=== PATIENT | female | born 1975 | race Caucasian/White ===

== ENCOUNTER 2024-08-01 10:46 | Emergency (ER) | payer BC, SELFPAY ==
[2024-08-01 10:53] VITALS: BP 151/90
--- NOTE | 2024-08-01 11:24 | ED.GENMED ---
History of Present Illness
<Elvi Ayala PA-C - Last Filed: 08/01/24 17:37>
General
Chief Complaint: Throat Problem
Source: patient
Exam Limitations: none
Time Seen by Provider: 08/01/24 11:15
Nursing documentation reviewed up to this point in time: agreed with
History of Present Illness
History of Present Illness:
48-year-old female with past medical history of hypothyroidism, history of tonsillectomy/adenectomy presents emergency department today with multiple weeks of sore throat. Patient states that this all started 2 weeks ago. This is associated with
fevers as well as nausea and vomiting. Her symptoms were attributed to post-COVID syndrome, and she was also diagnosed with uvulitis at this time and started on steroids. Patient states that she initially got better with the steroids, however
after her last dose of the steroids 4 days ago, she felt as though her sore throat got worse. Patient states that she now feels as though it is hard to swallow and she has swelling in the front of her neck and feels as though her whole throat is
swelling up. Patient states that she is up-to-date on her vaccinations. Patient no longer has nausea or vomiting but does have on and off chills. Patient has no pain with flexion or extension. She has no trismus, no hot potato voice.
Past History
<ANAM Caraballo Last Filed: 08/01/24 17:37>
Past History
ED Past Medical History: Other (Migraines)
ED Past Surgical History: None
Social History
Tobacco: Non-smoker
Review of Systems
<Elvi Ayala PA-C - Last Filed: 08/01/24 17:37>
Review of Systems
All Other Systems: ROS reviewed and negative except as documented in HPI and ROS
Phy Exam
<Elvi Ayala PA-C - Last Filed: 08/01/24 17:37>
Physical Exam
Physical Exam:
General: Patient is well appearing and in no acute distress; non-toxic
Skin: Warm and dry, no rashes or lesions
Head: Normocephalic, atraumatic
Eyes: Sclera non-icteric. EOMs intact.
Neck: No cervical lymphadenopathy. No pain with neck flexion or extension. Mild submandibular swelling noted bilaterally.
Mouth: Uvula is edematous and erythematous, midline. Hx of tonsillectomy. No intraoral lesions.
Cardiac: Regular rate an rhythm, no murmurs
Pulm: Normal respiratory effort, no wheezes, rales, or rhonchi bilaterally
Abdomen: No abdominal tenderness to palpation
Neuro: CN II-XII intact, no focal neurologic deficits.
Psychiatric: Appropriate mood and affect.
Course
Januarylt;Elvi Ayala PA-C - Last Filed: 08/01/24 17:37>
Orders/Labs/Results
Orders:
Orders
08/01/24 11:53
CT Neck With Iv Contrast Urgent
Comment:
Reason For Exam: neck swelling and pain
0.9% Sodium Chloride 500 ml [Nss] 500 ml IV BOLUS
Ketorolac [Toradol] 15 mg IV NOW STA
08/01/24 12:08
Complete Blood Count/With Diff Urgent
Comprehensive Metabolic Panel Urgent
Monotest Urgent
Comment: MONO ADDED ON BY FLOOR 1PM 08-01-24
Rapid Strep Group A Urgent
KAREN Source: Throat/Pharynx
Specimen Description:
Date Specimen was Collected: 08/01/24
Time Specimen was Collected: 11:58
08/01/24 13:07
Add On- LAB Urgent
Tests Added?: monotest
08/01/24 14:26
Dexamethasone Sod Phosphate [Decadron] 10 mg IV NOW STA
08/01/24 14:43
Clindamycin HCl [Cleocin] 450 mg PO NOW STA
Abnormal Lab Results
08/01/24
12:08
WBC 14.7 H 10^3/uL
(4.8-10.8)
Abs Immat Gran (auto) 0.1 H 10^3/uL
(0-0.05)
Absolute Neuts (auto) 9.4 H 10^3/uL
(1.4-6.5)
Absolute Lymphs (auto) 4.2 H 10^3/uL
(1.2-3.4)
Absolute Monos (auto) 0.7 H 10^3/uL
(0.1-0.6)
Immature Gran % 1.0 H %
(0-0.5)
Creatinine 0.5 L mg/dL
(0.6-1.0)
ALT 48 H U/L
(0-35)
Alkaline Phosphatase 132 H U/L
(38-126)
08/01/24 12:08
08/01/24 12:08
Vital Signs
Initial and Last Documented VS:
Initial Vital Signs
Temp Pulse Resp BP Pulse Ox
98.1 F 100 16 151/90 98
08/01/24 10:53 08/01/24 10:53 08/01/24 10:53 08/01/24 10:53 08/01/24 10:53
Last Documented Vital Signs
Temp Pulse Resp BP Pulse Ox
98 F 98 18 134/68 99
08/01/24 14:55 08/01/24 14:55 08/01/24 14:55 08/01/24 14:55 08/01/24 14:55
<Jesse Samson MD - Last Filed: 08/01/24 14:44>
Orders/Labs/Results
Orders:
Orders
08/01/24 11:53
CT Neck With Iv Contrast Urgent
Comment:
Reason For Exam: neck swelling and pain
0.9% Sodium Chloride 500 ml [Nss] 500 ml IV BOLUS
Ketorolac [Toradol] 15 mg IV NOW STA
08/01/24 12:08
Complete Blood Count/With Diff Urgent
Comprehensive Metabolic Panel Urgent
Monotest Urgent
Comment: MONO ADDED ON BY FLOOR 1PM 08-01-24
Rapid Strep Group A Urgent
KAREN Source: Throat/Pharynx
Specimen Description:
Date Specimen was Collected: 08/01/24
Time Specimen was Collected: 11:58
08/01/24 13:07
Add On- LAB Urgent
Tests Added?: monotest
08/01/24 14:26
Dexamethasone Sod Phosphate [Decadron] 10 mg IV NOW STA
08/01/24 14:43
Clindamycin HCl [Cleocin] 450 mg PO NOW STA
Abnormal Lab Results
08/01/24
12:08
WBC 14.7 H 10^3/uL
(4.8-10.8)
Abs Immat Gran (auto) 0.1 H 10^3/uL
(0-0.05)
Absolute Neuts (auto) 9.4 H 10^3/uL
(1.4-6.5)
Absolute Lymphs (auto) 4.2 H 10^3/uL
(1.2-3.4)
Absolute Monos (auto) 0.7 H 10^3/uL
(0.1-0.6)
Immature Gran % 1.0 H %
(0-0.5)
Creatinine 0.5 L mg/dL
(0.6-1.0)
ALT 48 H U/L
(0-35)
Alkaline Phosphatase 132 H U/L
(38-126)
08/01/24 12:08
08/01/24 12:08
Vital Signs
Initial and Last Documented VS:
Initial Vital Signs
Temp Pulse Resp BP Pulse Ox
98.1 F 100 16 151/90 98
08/01/24 10:53 08/01/24 10:53 08/01/24 10:53 08/01/24 10:53 08/01/24 10:53
Last Documented Vital Signs
Temp Pulse Resp BP Pulse Ox
98 F 98 18 134/68 99
08/01/24 14:55 08/01/24 14:55 08/01/24 14:55 08/01/24 14:55 08/01/24 14:55
<Elvi Ayala PA-C - Last Filed: 08/01/24 17:37>
MDM/Problems Addressed
Differential Diagnosis Includes:
Differentials include uvulitis, retropharyngeal abscess, viral pharyngitis, epiglottitis, esophagitis, allergic reaction
MDM/Problems Addressed:
48-year-old female presents to emergency department today with persistent throat pain. On exam she has inflammation and swelling of her uvula however she also has some mild anterior neck swelling noted. Considering patient feeling out patient
therapy and the extent of her symptoms, we will obtain CAT scan of the neck to rule out deep space infection of the neck. CT performed demonstrates enlargement of the inguinal tonsils as well as peritonsillar abscess around left faucial tonsils.
Along with bilateral cervical lymphadenopathy. Will start patient on clindamycin, findings discussed with ENT, they will see patient in office tomorrow morning 8:30 AM. Patient stable for discharge.
Chronic conditions affecting care:
hyperthyroidism
<Elvi Ayala PA-C - Last Filed: 08/01/24 17:37>
*Critical Care Note
Total Time (30-74mins, 75-104mins- exclusive of procedures): Not Applicable
ED Attending Note
<Elvi Ayala PA-C - Last Filed: 08/01/24 17:37>
-
Portions of this chart may have been created with voice recognition software.� Occasional wrong word or��sound alike� substitutions may have occurred due to the inherent limitations of voice recognition software.
<Jesse Samson MD - Last Filed: 08/01/24 14:44>
ED Attending Note
Patient seen and examined by attending physician: Yes
ED Attending Note:
I have seen and evaluated the patient with a [id number] encounter. I have spoken to the advance practicer provider and involved in the medical history, the physical exam, medical decision making.
Evaluation and management service: agree unless noted differently below.
Results interpretation: agree unless noted differently below.
Focused HPI: 48-year-old female with history as documented presents for evaluation of sore throat. Patient reports this has been ongoing for 8 days. She says she was initially seen last week and had negative strep swab, was started on a Z-Parveen and
a short burst of steroids�she says symptoms improved transiently but then once again worsened and over the past few days has had progressive throat pain. Worse when she swallows. She denies any trismus or pain with movement of the neck. She did
have a fever last week to 103 �F but no fever since. She has had mild cough. Denies rhinorrhea or postnasal drip. She denies any change in voice. She denies any drooling. She denies any shortness of breath. No other complaints. She is status
post T&A when she was 16.
Physical exam: Awake alert not in distress. Airway intact, handling secretions. Hypertensive and mildly tachycardic but no fever. She has no tongue elevation, patent oropharynx, slight erythema of the uvula and pharynx but no vesicles or
petechiae, tonsils absent. No trismus. Full range of motion of the neck without pain. No palpable adenopathy. No submental swelling.
Medical Decision Makin-year-old female presents with persistent sore throat for over a week now. Treated with steroids and a Z-Parveen with transient improvement but symptoms once again worsening. She had labs including CBC which showed
leukocytosis, CMP no clinically significant abnormalities. Monospot was negative. Strep swab negative. Pending CT neck to rule out abscess. Likely escalate antibiotics and restart steroids.
CT neck shows a tiny left peritonsillar abscess approximately 6 mm�on review of CT likely not amenable to drainage based on the size and location. Discussed with ENT will start on clindamycin 450 mg 3 times daily, treat with dexamethasone and have
patient follow-up in the office tomorrow at 8:30 AM. Discussed with patient she is agreeable.
Discharge Plan
Departure
Patient Disposition: Home (Routine Discharge)
Date of Disposition: 08/01/24
Time of Disposition: 14:43
Patient with high blood pressure during this ER visit?: Yes
Discharge Problem:
Acute tonsillitis, Abscess, peritonsillar
Instructions: Peritonsillar Abscess, Adult (DC)
Prescriptions:
New
clindamycin HCl 150 mg capsule
450 mg PO TID 10 Days Qty: 90 0RF
No Action
gabapentin 300 mg capsule
300 mg PO DAILY Qty: 30 0RF
hydrocodone-acetaminophen 5-325 mg tablet
1 tab PO Q8H PRN (Reason: pain) Qty: 8 0RF
Referrals:
Humble Mccarthy MD [Family Provider] -
Leonardo Hammond MD [Active] - 08/02/24 8:30 am
Activity Restrictions/Additional Instructions:
Thank you for visiting the Emergency Department at [facility].
1. Please schedule a follow up appointment as directed. Call first thing tomorrow morning to make an appointment.
2. If indicated, please take your medications as instructed and indicated on discharge paperwork.
3. If any of your symptoms do not improve, or persist, or become more severe within 6-12 hours, please return to the emergency department for further care.
4. Please return to the emergency department if you develop a headache, neck pain/stiffness, fever greater than 100.4F, chest pain, shortness of breath, persistent nausea, vomiting, slurred speech, difficulty walking, numbness/tingling, weakness,
signs of infection or any other symptoms that are worrisome to you.
Please call [phone] if you have any questions.
Interventions
Interventions:
*Risk Screen - Suicide Last Done: 08/01/24 10:53
*General Assessment Last Done: 08/01/24 10:53
*Neglect/Abuse Screening Last Done: 08/01/24 10:53
*ED COVID-19 Vaccine History Last Done: 08/01/24 10:53
*Nursing Disposition Last Done: 08/01/24 15:03
ED-EENT Assessment Last Done: 08/01/24 12:17
ED- Pulmonary Assessment Last Done: 08/01/24 12:17
Discharge Date and Time
Discharge Date/Time: 08/01/24 15:04
Print Language: TURKISH
[2024-08-01] MEDS: TORADOL 15 MG IV (12:11)
[2024-08-01] MEDS: NSS 500 IV (12:11)
[2024-08-01 12:16] VITALS: BMI 32.1
[2024-08-01 12:41] LABS: Hematocrit 38.2 % (37.0-47.0); Hemoglobin 12.6 g/dL (12.0-16.0); Mean Corpuscular Volume 84.9 fL (81.0-99.0); Mean Platelet Volume 9.5 fL (7.4-10.4); Platelet Count 381 10^3/uL (130-400); Red Cell Dist. Width 13.8 % (11.5-14.5); White Blood Cell Count 14.7 10^3/uL (4.8-10.8)
[2024-08-01 12:43] LABS: ALT (SGPT) 48 U/L (0-35); AST (SGOT) 20 U/L (14-36); Albumin 4.3 g/dl (3.5-5.0); Alkaline Phosphatase 132 U/L (38-126); Blood Urea Nitrogen 10 mg/dl (7-17); Calcium 9.9 mg/dl (8.4-10.2); Carbon Dioxide 29 mmol/L (22-30); Chloride 101 mmol/L (98-107); Estimated Creatinine Clearance 110 ml/min; Glucose 90 mg/dl (70-99); Potassium 4.2 mmol/L (3.5-5.1); Sodium 141 mmol/L (135-145); Total Bilirubin 0.6 mg/dl (0.2-1.3); Total Protein 7.3 g/dl (6.3-8.2); eGFR > 60.00
[2024-08-01 13:44] LABS: Monotest Negative (Negative)
[2024-08-01 14:32] LABS: % Basophils 0.3 % (0-2); % Eosinophils 1.3 % (0-6); % Lymphocytes 28.5 % (20.5-51.1); % Neutrophils 63.9 % (42.2-75.2); Absolute Eosinophils 0.2 10^3/uL (0-0.7); Absolute Immature Granulocytes 0.1 10^3/uL (0-0.05); Absolute Lymphocytes 4.2 10^3/uL (1.2-3.4); Absolute Monocytes 0.7 10^3/uL (0.1-0.6); Absolute Neutrophils 9.4 10^3/uL (1.4-6.5); Nucleated Red Blood Cells % 0 %
[2024-08-01] MEDS: DECADRON 10 MG IV (14:47)
[2024-08-01] MEDS: CLEOCIN 450 MG PO (14:53)
[2024-08-01 14:55] VITALS: BP 134/68
== END 2024-08-01 15:04 | disposition home or self-care (01) ==
LOC: EMR 10:46
PROVIDERS: Physician Assistant; EMERGENCY PHYSICIAN Emergency Medicine; FAMILY PHYSICIAN Family Medicine
DX: J36 Peritonsillar abscess (principal); R03.0 Elevated blood-pressure reading, without diagnosis of hypertension
CPT/HCPCS: 99284; 96374; 96375; 96361; 70491; 80053; 85025; 86308; 87070; 87880; Q9967

== ENCOUNTER 2025-02-11 18:05 | Inpatient (IN) | payer BC, SELFPAY ==
[2025-02-11] VITALS (20 sets, daily range): BP systolic 80–148; BP diastolic 60–101
[2025-02-11 14:01] LABS: Hematocrit 40.5 % (37.0-47.0); Hemoglobin 13.5 g/dL (12.0-16.0); Mean Corp Hgb Conc. 33.3 g/dL (33.0-37.0); Mean Corpuscular Hgb 29.5 pg (27.0-31.0); Mean Corpuscular Volume 88.6 fL (81.0-99.0); Mean Platelet Volume 9.7 fL (7.4-10.4); Platelet Count 403 10^3/uL (130-400); Red Blood Cell Count 4.57 10^6/uL (4.20-5.40); Red Cell Dist. Width 13.8 % (11.5-14.5); White Blood Cell Count 25.9 10^3/uL (4.8-10.8)
[2025-02-11 14:11] LABS: ALT (SGPT) 20 U/L (0-35); AST (SGOT) 17 U/L (14-36); Albumin 4.6 g/dl (3.5-5.0); Alkaline Phosphatase 102 U/L (38-126); Blood Urea Nitrogen 21 mg/dl (7-17); Calcium 9.2 mg/dl (8.4-10.2); Carbon Dioxide 24 mmol/L (22-30); Chloride 104 mmol/L (98-107); Glucose 198 mg/dl (70-99); Potassium 4.2 mmol/L (3.5-5.1); Sodium 139 mmol/L (135-145); Total Bilirubin 0.4 mg/dl (0.2-1.3); Total Protein 7.1 g/dl (6.3-8.2); eGFR > 60.00
[2025-02-11 14:31] LABS: Troponin I 0.109 ng/ml
[2025-02-11 15:28] LABS: % Basophils 0.2 % (0-2); % Immature Granulocytes 0.8 % (0-0.5); % Lymphocytes 13.9 % (20.5-51.1); % Neutrophils 81.1 % (42.2-75.2); Absolute Basophils 0.1 10^3/uL (0-0.2); Absolute Immature Granulocytes 0.2 10^3/uL (0-0.05); Absolute Lymphocytes 3.6 10^3/uL (1.2-3.4); Nucleated Red Blood Cells % 0 %
--- NOTE | 2025-02-11 16:06 | ED.GENMED ---
History of Present Illness
General
Chief Complaint: Chest Pain
Source: patient
Exam Limitations: none
Time Seen by Provider: 02/11/25 15:35
History of Present Illness
History of Present Illness:
49yoF with a history of Grave's disease s/p thyroidectomy now on levothyroxine and thyroid eye disease presenting for evaluation of jaw pain. Patient was at a restaurant this afternoon around 11 AM. She had the sudden urge to go to the bathroom
and had an episode of diarrhea. This was followed by a throbbing headache. Pain started to radiate into her jaw followed by a burning pain in her chest. This was associated with nausea and hot and cold flashes. She continues to have
intermittent discomfort in her chest. She denies any shortness of breath, pleuritic pain, syncope, paresthesias, vomiting. Of note, patient is currently on a prednisone taper for her thyroid eye disease and is currently taking 40 mg daily.
Past History
Past History
ED Past Medical History: Other (Migraines)
ED Past Surgical History: None
Social History
Tobacco: Non-smoker
Phy Exam
Physical Exam
Physical Exam:
Patient appears uncomfortable, anxious
General Physical Exam
General Presentation: well appearing and mild distress
General age: appears stated age
General Skin: warm and dry
General Mental: alert
ENT Exam
ENT Exam: normocephalic
Cardiovascular Exam
Cardiovascular Exam: regular rate/rhythm, no edema, no murmur and normal peripheral pulses (2+ radial and DP pulses bilaterally)
Pulmonary Exam
Pulmonary Exam: lungs clear, no respiratory distress, no rales, no crackles and no rhonchi
Neurological Exam
Neurological Exam: alert
[place] Coma Scale
Eye Opening: Spontaneous
Verbal Response: Oriented
Motor Response: Obeys Commands
GCS Total Score: 15
Skin Exam
Skin Exam: normal color and warm/dry
Psychiatric Exam
Psychiatric Exam: anxious
Scores
Heart Score for Chest Pain Patients
STEMI patient?: No
History: Highly Suspicious
ECG: Significant ST-Depression
Age: >45 - <65 years
Risk Factors: 1 or 2 Risk Factors
Troponin: >/= 3 x Normal Limit
Heart Score for Chest Pain Patients: 8
Heart Score Risk: 72.7 % MACE over next 6 weeks
Course
Orders/Labs/Results
Orders:
Orders
02/11/25 12:58
ECG [Electrocardiogram (*1)] Urgent
Reason for Study: Chest Pain
EKG- Treatment ONCE
02/11/25 13:15
CT Head W/o Iv Contrast Urgent
Comment:
Reason For Exam: headache, double vision
02/11/25 13:41
Complete Blood Count/With Diff Urgent
Comprehensive Metabolic Panel Urgent
Troponin I Urgent
02/11/25 15:37
ECG [Electrocardiogram (*1)] Urgent
Reason for Study: Chest Pain
EKG- Treatment ONCE
02/11/25 15:47
CT Chest/abd/pelvis Angio W/wo Urgent
Comment:
Reason For Exam: Chest pain, r/o dissection
Cardiac Monitoring- Treatment ONCE
02/11/25 15:54
Troponin I Urgent
02/11/25 16:17
Morphine Sulfate 4 mg IV NOW STA
Ondansetron Injectable [Zofran] 4 mg IV NOW STA
02/11/25 16:32
Aspirin Chewable [Low Strength Aspirin] 324 mg PO NOW STA
02/11/25 16:45
Heparin 4,000 units IV NOW STA
Heparin 83966 Units/250 ml 25,000 units in 250 ml IV PER PROTOCOL
Weight to be used for heparin protocol in kilograms (kg):: 88
Protocol:: Cardiac Tx/Acute Coronary
PTT Goal Range to be used:: PTT 73 to 111 seconds
Order type:: Initial
INITIAL Infusion Dose (UNITS/KG/hr) & then follow protocol:: 12 units/kg/hr
Infusion Dose in UNITS/hr & then follow protocol (UNITS/hr):: 1,000
INFUSION RATE in mL/hr & then follow protocol (mL/hr):: 10
PTT less than or equal to 64 seconds:: Increase rate by 200 units/hr (+ 2 mL/hr)
PTT 64.1 to 72.9 seconds:: Increase rate by 100 units/hr (+ 1 mL/hr)
PTT 73 to 111 seconds:: Target Range. No change in rate.
PTT 111.1 to 130.9 seconds:: Decrease rate by 100 units/hr (- 1 mL/hr)
PTT 131 to 199.9 seconds:: HOLD for 1 hr. Then decrease rate by 200 units/hr (- 2 mL/hr)
PTT greater than or equal to 200 seconds:: HOLD for 2 hrs & Notify Provider. Then decrease by 200 units/hr (-
2 mL/hr)
Lab follow-up:: Each change, PTT q6h until 2 consecutive are therapeutic. Then PTT
daily.
Nursing to Place Non Medication Order As Directed
Physician Order: PTT 6 hours after initial start of Heparin infusion
Above order entered?: Yes
02/11/25 16:46
Nitroglycerin Sublingual [Nitrostat (Sublingual)] 0.4 mg SL NOW STA
02/11/25 17:06
PTT Urgent
Comment: Obtain baseline before beginning heparin infusion if not already collected
Abnormal Lab Results
02/11/25 02/11/25
13:41 15:54
WBC 25.9 H 10^3/uL
(4.8-10.8)
Plt Count 403 H 10^3/uL
(130-400)
Abs Immat Gran (auto) 0.2 H 10^3/uL
(0-0.05)
Absolute Neuts (auto) 21.0 H 10^3/uL
(1.4-6.5)
Absolute Lymphs (auto) 3.6 H 10^3/uL
(1.2-3.4)
Absolute Monos (auto) 1.0 H 10^3/uL
(0.1-0.6)
Immature Gran % 0.8 H %
(0-0.5)
Neutrophils % 81.1 H %
(42.2-75.2)
Lymphocytes % 13.9 L %
(20.5-51.1)
BUN 21 H mg/dl
(7-17)
Glucose 198 H mg/dl
(70-99)
Troponin I 0.109 H* ng/ml 1.230 H* D ng/ml
02/11/25 13:41
02/11/25 13:41
Vital Signs
Initial and Last Documented VS:
Initial Vital Signs
Temp Pulse Resp BP Pulse Ox
97.7 F 98 18 148/100 96
02/11/25 13:03 02/11/25 13:03 02/11/25 13:03 02/11/25 13:03 02/11/25 13:03
Last Documented Vital Signs
Temp Pulse Resp BP Pulse Ox
97.7 F 102 26 137/101 94
02/11/25 13:03 02/11/25 16:00 02/11/25 16:00 02/11/25 17:01 02/11/25 15:45
MDM/Problems Addressed
Differential Diagnosis Includes:
49yoF here with jaw pain/chest burning that started after a headache this afternoon. Associated with nausea and diaphoresis. She is mildly elevated in triage with otherwise normal vital signs. She appears uncomfortable and is anxious. Exam
otherwise reassuring with equal pulses in all extremities. Differential diagnosis includes but is not limited to: ACS, PE, aortic dissection
Initial ED plan: Labs and EKG obtained in triage. Troponin 0.109 and EKG shows nonspecific ST changes. Leukocytosis noted with a WBC of 25 which may be related to the prednisone taper that she is on. CT head negative for acute findings. Repeat
EKG obtained during initial assessment appears improved. Will check repeat troponin and dissection study. IV morphine and Zofran for symptoms.
*EKG
Interpreted by ED Provider?: Yes
EKG Intrepretation Date: 02/11/25
Heart Rate: 95
Rate: normal
Rhythm: sinus
[place]: normal axis
Interval: normal interval
QRS Pattern: normal QRS
Ischemia: non-specific ST changes
*Critical Care Note
Total Time (30-74mins, 75-104mins- exclusive of procedures): 35
Update Note
Update Note:
Repeat troponin increasing to 1.23. CTA is negative for aortic dissection and other acute findings. On reassessment, her headache and chest burning have resolved but she now is complaining of chest tightness. Dr. Ontiveros notified of patient and
cardiology is recommending admission to the hospitalist service. Aspirin load and heparin infusion ordered. She was admitted for further management.
ED Attending Note
-
Portions of this chart may have been created with voice recognition software.� Occasional wrong word or��sound alike� substitutions may have occurred due to the inherent limitations of voice recognition software.
Discharge Plan
Departure
Patient Disposition: Admit
Date of Disposition: 02/11/25
Time of Disposition: 16:48
Presentation/result/management discussed w/ accepting MD/DO: Hospitalist
Discharge Problem:
Non-ST elevation [place] (NSTEMI)
Prescriptions:
No Action
gabapentin 300 mg capsule
300 mg PO DAILY Qty: 30 0RF
hydrocodone-acetaminophen 5-325 mg tablet
1 tab PO Q8H PRN (Reason: pain) Qty: 8 0RF
clindamycin HCl 150 mg capsule
450 mg PO TID 10 Days Qty: 90 0RF
Referrals:
UNKNOWN - PT DOES,NOT KNOW [Family Provider] -
Interventions
Interventions:
*Risk Screen - Suicide Last Done: 02/11/25 13:03
*General Assessment Last Done: 02/11/25 13:03
*Neglect/Abuse Screening Last Done: 02/11/25 13:03
ED- Cardiac Assessment Last Done: 02/11/25 15:32
Discharge Date and Time
Print Language: HAITIAN
[2025-02-11] MEDS: ZOFRAN 4 MG IV ×2 (16:21→20:29)
[2025-02-11] MEDS: MORPHINE SULFATE 4 MG IV (16:21)
[2025-02-11] MEDS: LOW STRENGTH ASPIRIN 324 MG PO (16:51)
[2025-02-11] MEDS: NITROSTAT (SUBLINGUAL) 0.4 MG SL (17:01)
[2025-02-11] MEDS: HEPARIN 25000 UNITS/250 ML IV (17:18)
[2025-02-11] MEDS: HEPARIN 4000 UNITS IV (17:18)
[2025-02-11 17:23] LABS: APTT 24.4 Sec (23.4-35.0)
--- NOTE | 2025-02-11 17:30 | HPS.HSE ---
Family Physician
-
Family Physician: NOT KNOW UNKNOWN - PT DOES
Chief Complaint
-
Headache and chest pressure
History of Present Illness
Patient with a history of Graves' disease 2 years ago and had a thyroidectomy. During that time she was also diagnosed with thyroid eye disease. She had a pressure in her eyes and bulging of her eyes. After thyroidectomy the bulging of the eyes
remained with a pressure event. Ever since then she had intermittent double vision.
Shows trouble with the eyes again started to have more frequent double vision and after follow-up with the claim agent and ophthalmology she was put on steroids. She started taking steroid 02/01/2025 starting at 50 mg and tapered down by 10 mg
every 4 days.
Today she was out for breakfast after she ate she had nausea and she vomited small amount of emesis. She had diarrhea twice.
Immediately after that her headache started which became really severe. She could not stand the pain. She felt she was having a brain aneurysm and she came to the hospital.
After the onset of headache she had burning sensation in the eyes, ears, jaw and it started to go down to the chest ,now settled down in the chest. She has a pressure-like feeling in the chest which was fluctuating. With the morphine she got
better. Headache is better now.
She has a history of migraine headache she gets intermittently 3-4 times a month. It is usually unilateral and is associated with visual rainbow affect but that she does not feel this headache was like her migraine.
No prior history of heart disease. She had issues with palpitations when she was young and took 3 years of medication.
Medical History
Past Medical History
Past Medical History: Reports Other (Graves dz)
Additional Past Medical History:
Graves' disease, migraine headaches
Past Surgical History: Reports Appendectomy, Tonsilectomy and Other (Tubal ligation)
Social History
Tobacco: Non-smoker
Alcohol: None
Drug: None
Living: With Family
Family History
Family History: Other (Sister had brain aneurysm)
Allergies / Home Medications
Allergies reflects when Allergies were last updated in [employer].
Home Medications with original date entered in [employer]
Allergy/Medication List:
Allergies
Allergy/AdvReac Type Severity Reaction Status Date / Time
diphenhydramine Allergy Unknown Verified 02/11/25 13:03
[From Benadryl]
nirmatrelvir [From Paxlovid] Allergy Swelling Verified 02/11/25 13:03
nitrofurantoin Allergy Unknown Verified 02/11/25 13:03
[From Macrobid]
ritonavir [From Paxlovid] Allergy Swelling Verified 02/11/25 13:03
Home Medications
gabapentin 300 mg capsule 300 mg PO DAILY #30 caps 05/09/22
hydrocodone 5 mg-acetaminophen 325 mg tablet 1 tab PO Q8H PRN pain #8 tabs 05/09/22
clindamycin HCl 150 mg capsule 450 mg (3 x 150 mg) PO TID 10 days #90 caps 08/01/24
Review of Systems
-
A 12 point ROS was completed and negative except as noted: Yes
Physical Exam
Vital Signs
Vital Signs
Temp Pulse Resp BP Pulse Ox
97.7 F 102 26 136/87 94
02/11/25 13:03 02/11/25 16:00 02/11/25 16:00 02/11/25 17:06 02/11/25 15:45
Physical Exam
General: Comfortable
HEENT: Moist mucous membranes
Respiratory: Clear and Non Labored Respirations; No Wheezes, Crackles or Accessory Resp Muscle Use
Cardiac: S1/S2, Regular Rhythm and Tachycardia
GI: Soft, Non Tender, Non Distended and Normal Bowel Sounds
Musculoskeletal: No Edema
Neuro: AO x 3 and No Motor Deficits; No Slurred Speech or Facial Droop
Psych: Calm and Intact Judgment/Insight; No Confused
Laboratory Results
-
02/11/25 13:41
02/11/25 13:41
Laboratory Results
APTT 24.4 Sec (23.4-35.0) 02/11/25 17:06
Total Bilirubin 0.4 mg/dl (0.2-1.3) 02/11/25 13:41
AST 17 U/L (14-36) 02/11/25 13:41
ALT 20 U/L (0-35) 02/11/25 13:41
Alkaline Phosphatase 102 U/L (38-126) 02/11/25 13:41
Troponin I 1.230 ng/ml H* D 02/11/25 15:54
Data Reviewed
-
CT Scan: Report Reviewed by me (CT angiogram of chest and abdomen pelvis, head CT)
Lab Data: Labs Reviewed by me
Impression/Plan
-
Acute chest pressure with associated headache, nausea vomiting and diarrhea-patient without history of CAD. EKG showed sinus rhythm with nonspecific ST-T changes. Troponin went up from 0.1-1.2 within 2 hours of admission. Rule out acute coronary
syndrome. Admit to IVU. Continue with IV heparin initiated in the ER. Continue with aspirin initiated in the ER. Continue to trend troponins. Use as needed sublingual nitro and if continues recurrence of chest pressure start on IV nitro.
Cardiology consulted and aware about admission. Check lipid panel.
Graves' disease status post thyroidectomy on Synthroid
Thyroid eye disease-currently active-initiated on steroids at 51-week ago. Continue with prednisone and taper as planned. Add p.o. eval and aspirin and steroids. Check a TSH.
Leukocytosis-suspect secondary to steroids. Afebrile. Patient without any upper respiratory symptoms. He had a prodrome of upper respiratory infection symptoms 2 weeks ago. Follow closely for any fevers or any other focal symptoms.
Full code
[2025-02-11] MEDS: DELTASONE 30 MG PO (18:53)
[2025-02-11] MEDS: PROTONIX 40 MG PO (18:53)
--- NOTE | 2025-02-11 19:36 | PTCARENOTE ---
Pt admitted from ED on heparin infusion. Pt denied any discomfort on arrival to IVU then reported 3/10 chest tightness. BP 106/76, 100% on room air. Troponins trending up, notified and came in to see pt, stat ECG was done. Telemetry shows
sinus rhythm. Will monitor pt closely.
--- NOTE | 2025-02-11 19:51 | CON.CAR ---
Consultation
Consultation Request
Date/Time Consultation Requested: 02/11/2025 16: 00
Date/Time Consultation Performed: 02/11/2025 19: 00
Requesting Provider: Rosales
Performing Provider: Rama
Reason for Consultation: Chest pain
Medical History
-
Chief Complaint: Chest pain
History of Present Illness:
Alma has a history of Graves' disease status post thyroidectomy in October 2024 with resultant hypothyroidism, mild hypercholesterolemia. 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
She was at breakfast at 11 AM this morning developed severe diarrhea after eating. This was followed by throbbing in the back of her eyes with burning in her eyes, ears which went down to her jaw and chest. This lasted for several minutes and she
came to the ER. Of note the chest burning came and went lasted 10 minutes at the time throughout the day. Symptoms were associated with nausea and diaphoresis. She was given nitro without relief. She was given morphine. Her pain had resolved.
She subsequently came to the IVU and developed recurrent chest discomfort. Feels like a tightness. Has not changed with breathing. Although troponin went from 0.1 to 1 0. to 1.7. ECG is normal
Past Medical History
Past Medical History: Other (See HPI, also migraine headaches history)
Past Surgical History: Other (Appendectomy, tonsillectomy, tubal ligation)
Social History
Tobacco: Non-Smoker
Alcohol: None
Drug: None
Personal: Single
Living: With Family
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
Family History
Family History: Other (There is a family history of premature coronary artery disease)
Allergies / Home Medications
Allergy/AdvReac Type Severity Reaction Status Date / Time
diphenhydramine Allergy Unknown Verified 02/11/25 13:03
[From Benadryl]
nirmatrelvir [From Paxlovid] Allergy Swelling Verified 02/11/25 13:03
nitrofurantoin Allergy Unknown Verified 02/11/25 13:03
[From Macrobid]
ritonavir [From Paxlovid] Allergy Swelling Verified 02/11/25 13:03
�Medication �Instructions �Recorded �Confirmed �Type
levothyroxine 112 mcg tablet 112 mcg PO DAILY Thyroid 02/11/25 02/11/25 History
prednisone 10 mg tablet 10 mg PO DIRECTED 02/11/25 02/11/25 History
Anti-Inflammatory
therapeutic multivitamin 1 tab PO DAILY Supplement 02/11/25 02/11/25 History
Review of Systems
-
History Source: Patient
All other systems: Negative unless noted
Constitutional: No Symptoms
EENT: No Symptoms
Respiratory: No Symptoms
Cardiac: Chest Pain and Diaphoresis
Abdomen/GI: Nausea and Diarrhea
: No Symptoms
Musculoskeletal: No Symptoms
Skin: No Symptoms
Neurological: Headache
Endocrine: No Symptoms
Hematologic/Lymphatic: No Symptoms
Physical Exam
Vital Signs
Temp Pulse Resp BP Pulse Ox
97.5 F 93 20 106/84 100
02/11/25 18:19 02/11/25 18:45 02/11/25 18:19 02/11/25 18:19 02/11/25 19:31
General: Well developed, well nourished in NAD.
Neck: Supple, no JVD, HJR, carotids +2 B/L, no bruits bilaterally.
Heart: Non displaced PMI, RRR, no murmurs, No S3, S4, no rubs.
Lungs: Clear to auscultation bilaterally, no wheeze, rhonchi, rubs bilaterally,
normal expiratory phase.
Abdomen: Normal bowel sounds, soft, non-tender, non-distended.
Extremities: No clubbing, cyanosis or edema bilaterally.
Neuro: Grossly nonfocal, awake, alert and oriented x3.
Lab Results
02/11/25 13:41
02/11/25 13:41
Troponin I 1.750 ng/ml H* D 02/11/25 18:32
Impression / Plan
-
Impression:
Non-STEMI with troponin of 1.7
History of Graves' disease status post thyroidectomy with resultant
Thyroid eye disease
Leukocytosis
Plan:
She presents with chest burning which had resolved. Chest discomfort has recurred. Of note there was no relief with nitroglycerin and morphine may have helped. CT was negative for aortic dissection and also for pulmonary embolism. EKG has
remained normal but troponin has increased to 1.7
Will give IV Lopressor and assess response
If continued chest discomfort on IV heparin we will do cardiac catheterization
Critical care time 35 minutes
Data Reviewed
-
EKG: Tracing Personally Visualized and interpreted
Radiology: Report Reviewed by me
Medical Tests (Nuc Med, Echo etc): Report Reviewed by me
Labs: Labs Reviewed by me
Old Records: Reviewed
[2025-02-11] MEDS: LOPRESSOR 5 MG IV (19:57)
--- NOTE | 2025-02-11 20:09 | W.PN.UPDATE ---
Update Note
Progress Note Update
She continues with chest discomfort despite giving IV Lopressor 5 mg. Will do cardiac catheterization. Explained risk and benefits to patient and family at bedside and she agrees to proceed. Business Performance Manager has been notified and discussed with
interventional cardiology
--- NOTE | 2025-02-11 20:42 | ITS.CL.PN ---
Remelt Worker - Procedure Note
Procedure
Procedure Note:
CARDIAC CATHETERIZATION REPORT
Date of Procedure: 02/11/2025
Referring: Dr. Ismael Ontiveros MD
Indication: high-risk NSTEMI
PROCEDURE(S)
1. left heart catheterization
2. coronary angiography
ACCESS: 6F right radial artery (closure: radial band)
CATHETERS
1. 6F JR4
2. 6F JL3.5
MODERATE SEDATION: 30 minutes of moderate sedation was utilized. An independent medical stenographer was present to assist with and help manage the patient's level of consciousness and physiologic status.
HEMODYNAMIC DATA
LVEDP 30 mmHg
VENTRICULOGRAPHY: apical hypokinesis with preserved basal function
CORONARY ANGIOGRAPHY
Dominance: right
LM: large, normal
LAD: large vessel giving rise to a large D1 and several small diagonal branches before wrapping around the apex. There is no CAD.
LCx: moderate caliber vessel giving rise to a single OM. There is no CAD.
RCA: large vessel giving rise to a moderate caliber PRDA and large caliber RPL branch. There is no CAD.
RADIATION: dose 519.86 mGy; DAP 43.7002 Gy*cm2; fluoroscopy time 6.6 min
CONCLUSIONS
1. normal coronary arteries in a right dominant system
2. ventriculography with apical hypokinesis and preserved basal function in a pattern consistent with a stress cardiomyopathy
2. elevated LV filling pressure and no aortic stenosis
RECOMMENDATIONS
1. start beta shamir
2. diuresis
3. stop heparin
4. primary prevention of CAD
Signed: Nishant Mattson MD, PhD
--- NOTE | 2025-02-11 22:58 | PTCARENOTE ---
Addendum entered by Raisa Zimmer RN 02/11/25 23:10:
New order for Lopressor 12.5mg and Lasix. TT Dr Mattson with pt's having low BP. Dr. Mattson instructed to give those med.
Addendum entered by Raisa Zimmer RN 02/11/25 23:01:
21:45 Pt return from pharmaceutical laboratory technician, report obtained. Rt Tr band, radial with positive pulses +2, pt denies numbness, pain or tingling. BP 82/65
Original Note:
Pt is taken to pharmaceutical laboratory technician
[2025-02-11] MEDS: LOPRESSOR 12.5 MG PO (23:17)
[2025-02-11] MEDS: LASIX 20 MG IV (23:53)
[2025-02-12] VITALS (10 sets, daily range): BP systolic 81–113; BP diastolic 55–79; BMI 33.7
[2025-02-12 01:46] LABS: Blood Urea Nitrogen 20 mg/dl (7-17); Calcium 8.3 mg/dl (8.4-10.2); Carbon Dioxide 27 mmol/L (22-30); Chloride 102 mmol/L (98-107); Estimated Creatinine Clearance 114 ml/min; Glucose 146 mg/dl (70-99); HDL Cholesterol 62 mg/dl; LDL Cholesterol, Calculated 115 mg/dl; Potassium 4.2 mmol/L (3.5-5.1); Sodium 139 mmol/L (135-145); Total Cholesterol 219 mg/dl (50-199); Triglyceride 210 mg/dl (10-149); Very Low Density Lipoprotein 42 mg/dl (0-30); eGFR > 60.00
[2025-02-12 02:03] LABS: Hematocrit 37.4 % (37.0-47.0); Hemoglobin 12.5 g/dL (12.0-16.0); Mean Corp Hgb Conc. 33.4 g/dL (33.0-37.0); Mean Corpuscular Hgb 29.6 pg (27.0-31.0); Mean Corpuscular Volume 88.4 fL (81.0-99.0); Mean Platelet Volume 9.6 fL (7.4-10.4); Platelet Count 369 10^3/uL (130-400); Red Blood Cell Count 4.23 10^6/uL (4.20-5.40); Red Cell Dist. Width 14.1 % (11.5-14.5); White Blood Cell Count 23.2 10^3/uL (4.8-10.8)
[2025-02-12 02:17] LABS: TSH 0.13 uIU/ml (0.47-4.68)
[2025-02-12] MEDS: SYNTHROID 112 MCG PO (05:47)
[2025-02-12] MEDS: DELTASONE 40 MG PO (07:48)
[2025-02-12] MEDS: LOPRESSOR 12.5 MG PO ×2 (07:48→20:56)
[2025-02-12] MEDS: PROTONIX 40 MG PO (07:48)
--- NOTE | 2025-02-12 07:59 | W.PN.HOSP.TC ---
Addendum entered and electronically signed by Jerel Pedroza MD 02/12/25 20:43:
Attending Addendum-
I saw and evaluated the patient. I reviewed the resident�s note and agree with findings and plan as documented in the resident�s note. Sub: complains of burning discomfort substernally, Denies SOB CP palpitations. 'Im scared please figure this out'
Seen with daughter present Full 12 point ROS reviewed and negative except as documented Exam: Vitals reviewed in chart GEN-mild distress HEENT exophthalmos no JVD CV RRR lungs clear abd soft LE no edema b/l
Plan:
# Takotsubo CM
- cath 02/12-normal coronary arteries in a right dominant system, ventriculography with apical hypokinesis and preserved basal function in a pattern consistent with a stress cardiomyopathy
- start Lopressor
- hold lasix for now
- check echo- if decreased EF start GDMT
- likely from thyrotoxicosis/thyroid disease
# NIMI
- troponin peaked
- f/u as OP
- check echo
# Graves with eye disease
- cont steroid taper
- TSH 0.13 levothyroxine decrease 2-3 weeks ago
- cont current dose levothyroxine
- f/u endo as OP
# Leukocytosis
- likely from steroids and stress rxn
- trend
# Hyperlipidemia
- would start statin prior to DC
# Peripheral Neuropathy
- cont gabapentin
DVT-p was on hep gtt, cont SCD and early ambulation
CODE- FULL
Dispo DC in am
Time spent coordinating care, review of plan of care with resident, personally reviewed records in EMR, med rec, consults, notes, labs, radiology, d/w nursing daughter � 55 mins
Original Note:
Today's Communication/Plan
-
Pending Echo.
Assessment / Plan
Assessment / Plan
#Stress Induced Cardiomyopathy
- Heart catheterization demonstrated normal coronary arteries, APICAL HYPOKINESIS and preserved basal function in a pattern consistent with a stress cardiomyopathy, elevated filling pressure in LV
- Started on Lopressor, with plans to switch to Toprol XL pending echo
- Received one dose IV Lasix due to elevated filling pressure, no other signs of fluid overload at this time dx of CHF is questionable. Will hold off until Echo.
#Elevated Troponin, secondary to non-ischemic myocardial injury
- Peaked at 1.75, have since downtrended.
#Grave's Disease w/ Grave's Ophthalmopathy
- OP dose of Levothyroxine recently changed from 125mcg to 112mcg <4 weeks ago. TSH on admission was 0.13. Considering dose was recently adjusted, will leave at 112mcg for now. Patient will schedule f/u with music coordinator on discharge
- On steroid taper started as outpatient. Final dose of 40mg prednisone today, then 30mg q4d with continuing taper by 10mg every 4 days.
#Dyslipidemia - TGs 210, Total Cholesterol 219, LDL 115, HDL 62. ASCVD risk <5%, no statin indicated at this time. Should follow up with PCP for lifestyle and diet modifications and with Endo for continuing control of iatrogenic hypothyroidism.
#Constipation - reporting constipation since arrival. Added Colace.
DVT PPx - None, ambulatory.
Anticipated Discharge: Within 24 hours
Subjective/Interval History
-
Feeling better this morning. She is still having central chest pressure, which is improved with pain medication and not associated with any shortness of breath, dizziness, palpitations, pain. No acute overnight events.
Objective Data
-
Labs:
Laboratory Results
02/11/25 02/11/25 02/12/25
18:21 23:30 01:17
WBC 23.2 H
Hgb 12.5
Hct 37.4
Plt Count 369
APTT Cancelled Cancelled
Sodium 139
Potassium 4.2
Chloride 102
Carbon Dioxide 27
BUN 20 H
Creatinine 0.6
Glucose 146 H
Calcium 8.3 L
Vital Signs:
Vital Signs
Temp Pulse Resp BP Pulse Ox
97.6 F 81 20 91/63 96
02/12/25 07:02 02/12/25 07:30 02/12/25 07:02 02/12/25 07:01 02/12/25 07:02
I&O
02/11/25 02/12/25 02/13/25
06:59 06:59 06:59
Intake Total 500 / 500
Balance 500 / 500
Review of Systems
-
History Source: Patient
Constitutional: Reports No Symptoms
EENT: Reports Other (Exophthalmos, double vision)
Respiratory: Reports No Symptoms
Cardiac: Reports Other; Denies Diaphoresis, Palpitations or Syncope
Abdomen/GI: Reports No Symptoms
Genitourinary: Reports No Symptoms
Musculoskeletal: Reports No Symptoms
Skin: Reports No Symptoms
Neuro: Reports Headache
Physical Exam
-
General: Well Developed, Well Nourished, No Apparent Distress and Comfortable
HEENT: Normocephalic, Atraumatic, Moist Mucous Membranes, [place] Conjunctivae, No Ptosis, PERRLA and Other (BL Exophthalmos)
Respiratory: Clear to Auscultation; Negative Wheezes, Rales or Rhonchi
Cardiac: Regular Rhythm and S1/S2; Negative Murmur or Rub
Breast: Deferred by me
GI: Soft, Nontender, Nondistended and Normal Bowel Sounds
Rectal: Deferred by Provider
Genito-urinary: Deferred by me
Musculoskeletal: No Clubbing, No Cyanosis and No Edema
Skin: Warm, Dry and IV Access / Catheter Site
Neuro: Awake, Alert, Oriented and Nonfocal/Grossly Intact
Psych: Calm
--- NOTE | 2025-02-12 08:47 | PTCARENOTE ---
Rec'd pt at handoff. Tele- SR. Assessment completed as documented. R radial site is c/d/i. Pt has no complaints CP/discomfort at this time. Plan of care reviewed w/ pt and verbalizes understanding. Currently in bed; call messer is w/in reach.
--- NOTE | 2025-02-12 09:15 | W.PN.CARDCBS ---
Addendum entered and electronically signed by Ismael Ontiveros MD 02/12/25 11:00:
I saw and examined the patient.
The WARRANTY MANAGER or PA's note was reviewed and I agree with the note.
Comment: General: Well developed, well nourished in NAD.
Neck: Supple, no JVD, HJR, carotids +2 B/L, no bruits bilaterally.
Heart: Non displaced PMI, RRR, no murmurs, No S3, S4, no rubs.
Lungs: Scattered rhonchi
Extremities: No clubbing, cyanosis or edema bilaterally.
Neuro: Grossly nonfocal, awake, alert and oriented x3.
Appears to have Takotsubo's. Will check echocardiogram. She got a dose of IV Lasix for an LVEDP of 30 on 02/11 at time of catheterization. Hold off on Lasix for now as send not appear to have CHF. Change Lopressor to Toprol. Unable to give CARISSA
inhibitor with borderline blood pressure.
Original Note:
Today's Communication / Plan
-
Echo pending
Change Lopressor to ToproL XL pending echo
Impression / Plan
-
PCP: None
Card: None prior to admission
Impression:
Admitted with chest pain, SHARMA, N/V/D 02/11/25
Elevated Troponin
Takotsubo CM
No CAD by cath 02/11/25
History of Graves' disease status post thyroidectomy
Thyroid eye disease on prednisone
Leukocytosis on steroids
Echo 02/12/25: Study pending
Plan:
-Patient admitted with SHARMA, N/V/D and chest pressure. Patient with elevated Troponin and ongoing pain prompting cardiac cath that suggested Takotsubo CM.
-Troponin peaked at 1.75, will manage as a nonischemic myocardial injury Troponin elevation due to Takotsubo CM
-Tele reviewed by me 02/12/25, SR throughout, no arrhythmia
-Echo pending, but apical hypokinesis with preserved basal function on v-gram.
-Normal coronary arteries by cath 02/12/25.
-Patient thinks she was told that she had fluid around her heart, no evidence of pericardial effusion on CT. Echo as planned.
-BP 91/63 after Lopressor 12.5 mg BID starting 02/11/25 PM. Pending echo could change to ToproL XL.
-BP precludes additional of CARISSA/ARB/ARNI/aldosterone antagonist
-Pending ER by echo could consider adding SGLT2
-Reviewed Takotsubo CM pathophysiology and expected course.
-Reviewed with resident who is going to order the Colace that patient has requested plus MOM HS PRN constipation.
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
Subjective
Date of Service: February 12, 2025
Chest pain when she lays on her left side
Objective
Labs:
02/12/25 01:17
02/12/25 01:17
Labs
Hgb 12.5 g/dL (12.0-16.0) 02/12/25 01:17
Hct 37.4 % (37.0-47.0) 02/12/25 01:17
Plt Count 369 10^3/uL (130-400) 02/12/25 01:17
APTT Cancelled 02/11/25 23:30
Sodium 139 mmol/L (135-145) 02/12/25 01:17
Potassium 4.2 mmol/L (3.5-5.1) 02/12/25 01:17
BUN 20 mg/dl (7-17) H 02/12/25 01:17
Creatinine 0.6 mg/dL (0.6-1.0) 02/12/25 01:17
Glucose 146 mg/dl (70-99) H 02/12/25 01:17
Troponins
02/11/25 02/11/25 02/11/25
13:41 15:54 18:32
Troponin I 0.109 H* 1.230 H* D 1.750 H* D
02/12/25
01:17
Troponin I 1.190 H* D
Vital Signs and I&O:
Vital Signs
Temp Pulse Resp BP Pulse Ox
97.6 F 81 20 91/63 96
02/12/25 07:02 02/12/25 07:30 02/12/25 07:02 02/12/25 07:01 02/12/25 07:02
Vital Signs
Temp Pulse Resp BP Pulse Ox
97.6 F 81 20 91/63 96
02/12/25 07:02 02/12/25 07:30 02/12/25 07:02 02/12/25 07:01 02/12/25 07:02
Intake & Output
02/10/25 02/11/25 02/12/25 02/13/25
06:59 06:59 06:59 06:59
Intake Total 500 / 500
Balance 500 / 500
Physical Exam
Physical Exam
GEN: NAD, AAOx3
HEENT: mmm
LUNGS: RA. No wheeze
CV: Reg, S1/S2, no murmur
ABD: soft, BS+, NT, ND
EXT: No clubbing, cyanosis, lesions or edema B/L
NEURO: Gross non-focal
SKIN: Warm, dry and pink. No rash
[2025-02-12 09:36] LABS: % Basophils 0.2 % (0-2); % Eosinophils 0.1 % (0-6); % Immature Granulocytes 0.5 % (0-0.5); % Lymphocytes 21.3 % (20.5-51.1); % Monocytes 4.3 % (1.7-9.3); % Neutrophils 73.6 % (42.2-75.2); Absolute Immature Granulocytes 0.1 10^3/uL (0-0.05); Absolute Lymphocytes 4.9 10^3/uL (1.2-3.4); Absolute Neutrophils 17.1 10^3/uL (1.4-6.5); Nucleated Red Blood Cells % 0 %
[2025-02-12] MEDS: COLACE 100 MG PO ×2 (09:55→20:56)
--- NOTE | 2025-02-12 15:05 | CM ---
spoke to pt in room, she is prev indep, lives with her S.O. and 2 young kids in a 2 story home with 3 steps to enter. she denies any dc planning needs or dme's. plan is for dc to home when medically stable.
[2025-02-13] VITALS (7 sets, daily range): BP systolic 98–106; BP diastolic 64–74; BMI 33.6
[2025-02-13] MEDS: SYNTHROID 112 MCG PO (04:49)
[2025-02-13] MEDS: MILK OF MAGNESIA 30 ML PO (04:52)
[2025-02-13 05:16] LABS: Hematocrit 40.4 % (37.0-47.0); Hemoglobin 13.2 g/dL (12.0-16.0); Mean Corp Hgb Conc. 32.7 g/dL (33.0-37.0); Mean Corpuscular Hgb 29.3 pg (27.0-31.0); Mean Corpuscular Volume 89.6 fL (81.0-99.0); Mean Platelet Volume 9.9 fL (7.4-10.4); Platelet Count 355 10^3/uL (130-400); Red Blood Cell Count 4.51 10^6/uL (4.20-5.40); Red Cell Dist. Width 13.9 % (11.5-14.5); White Blood Cell Count 19.3 10^3/uL (4.8-10.8)
[2025-02-13 05:23] LABS: ALT (SGPT) 16 U/L (0-35); AST (SGOT) 17 U/L (14-36); Albumin 3.6 g/dl (3.5-5.0); Alkaline Phosphatase 85 U/L (38-126); Blood Urea Nitrogen 21 mg/dl (7-17); Calcium 8.9 mg/dl (8.4-10.2); Carbon Dioxide 30 mmol/L (22-30); Chloride 103 mmol/L (98-107); Estimated Creatinine Clearance 95 ml/min; Glucose 108 mg/dl (70-99); Potassium 4.4 mmol/L (3.5-5.1); Sodium 140 mmol/L (135-145); Total Bilirubin 0.5 mg/dl (0.2-1.3); Total Protein 6.3 g/dl (6.3-8.2); eGFR > 60.00
--- NOTE | 2025-02-13 07:36 | W.PN.HOSP.TC ---
Addendum entered and electronically signed by Jerel Pedroza MD 02/13/25 22:50:
Attending Addendum-
I saw and evaluated the patient. I reviewed the resident�s note and agree with findings and plan as documented in the resident�s note. Sub: Denies SOB CP palpitations. Seen with partner present Full 12 point ROS reviewed and negative except as
documented Exam: Vitals reviewed in chart GEN-mild distress HEENT exophthalmos no JVD CV RRR lungs clear abd soft LE no edema b/l
Plan:
# Takotsubo CM
- cath 02/12-normal coronary arteries in a right dominant system, ventriculography with apical hypokinesis and preserved basal function in a pattern consistent with a stress cardiomyopathy
- start toprol xl
- hold lasix for now
- echo- 02/12-LV ejection fraction estimated by Lyle's biplane method 40-45%
Mild mid inferoseptal and apical septal hypokinesis
- likely from thyrotoxicosis/thyroid disease
- f/u cards as OP
# NIMI
- troponin peaked
- f/u as OP
- echo 02/12
# Graves with eye disease
- cont steroid taper
- TSH 0.13 levothyroxine decreased 2-3 weeks ago
- cont current dose levothyroxine
- f/u endo as OP
# Leukocytosis
- likely from steroids and stress rxn
- trending down
# Hyperlipidemia
- start statin
# Peripheral Neuropathy
- cont gabapentin
DVT-p was on hep gtt, cont SCD and early ambulation
CODE- FULL
Dispo DC home with HC
Time spent coordinating care, DC planning, review of DC plan of care with resident, transition of care, review of records, med rec/scripts sent electronically, consults, notes, d/w consultants, nursing, family, and CM� 33 mins
Original Note:
Today's Communication/Plan
-
Discharge home today with Toprol XL and follow up with cardiology
Assessment / Plan
Assessment / Plan
#Stress Induced Cardiomyopathy (Takotsubo Cardiomyopathy)
- Heart catheterization demonstrated normal coronary arteries, APICAL HYPOKINESIS and preserved basal function in a pattern consistent with a stress cardiomyopathy, elevated filling pressure in LV
- Received one dose IV Lasix due to elevated filling pressure, no other signs of fluid overload at this time, no need for continuing lasix
- Echo showing minimally reduced EF at 40-45% with mild ind inferoseptal and apical septal hypokinesis consistent with Takotsubo Cardiomyopathy
- Will switch to Toprol XL 25mg at d/c, follow up w/ Cardiology arranged
#Elevated Troponin, secondary to non-ischemic myocardial injury
- Peaked at 1.75, have since downtrended
#Grave's Disease w/ Grave's Ophthalmopathy
- OP dose of Levothyroxine recently changed from 125mcg to 112mcg <4 weeks ago. TSH on admission was 0.13. Considering dose was recently adjusted, will leave at 112mcg for now. Patient will schedule f/u with opal polisher on discharge
- On steroid taper started as outpatient. 30mg today. She has enough at home to continue the taper as directed. Will call Endo to schedule follow up.
#Dyslipidemia - TGs 210, Total Cholesterol 219, LDL 115, HDL 62. ASCVD risk <5%, no statin indicated at this time. Should follow up with PCP for lifestyle and diet modifications and with Endo for continuing control of iatrogenic hypothyroidism.
#Constipation - reporting constipation since arrival. Added Colace.
Diet - Regular
DVT PPx - None, ambulatory
Code Status - Full Code
Anticipated Discharge: Today
Subjective/Interval History
-
Feeling well this AM, ready to go home. No acute complaints, no overnight events.
Objective Data
-
Labs:
Laboratory Results
02/13/25
04:40
WBC 19.3 H
Hgb 13.2
Hct 40.4
Plt Count 355
Sodium 140
Potassium 4.4
Chloride 103
Carbon Dioxide 30
BUN 21 H
Creatinine 0.7
Glucose 108 H
Calcium 8.9
Total Bilirubin 0.5
AST 17
ALT 16
Alkaline Phosphatase 85
Vital Signs:
Vital Signs
Temp Pulse Resp BP Pulse Ox
98 F 80 20 104/65 96
02/13/25 07:00 02/13/25 05:45 02/13/25 07:00 02/13/25 04:34 02/13/25 07:00
I&O
02/12/25 02/13/25 02/14/25
06:59 06:59 06:59
Intake Total 500 / 500 1680 / 1680
Balance 500 / 500 1680 / 1680
Review of Systems
-
History Source: Patient
Constitutional: Reports No Symptoms
EENT: Reports No Symptoms Reported
Respiratory: Reports No Symptoms
Cardiac: Denies Chest Pain, Diaphoresis, Palpitations or Syncope
Abdomen/GI: Reports No Symptoms
Breast: Reports No Symptoms
Genitourinary: Reports No Symptoms
Musculoskeletal: Reports No Symptoms
Skin: Reports No Symptoms
Neuro: Reports No Symptoms
Physical Exam
-
General: Well Developed, Well Nourished, No Apparent Distress, Comfortable and Conversant
HEENT: Normocephalic, Atraumatic, Moist Mucous Membranes, Anicteric, [place] Conjunctivae, PERRLA and Other (BL Exophthalmos )
Respiratory: Clear to Auscultation; Negative Wheezes, Rales or Rhonchi
Cardiac: Regular Rhythm and S1/S2; Negative Murmur or Rub
GI: Soft, Nontender, Nondistended and Normal Bowel Sounds
Genito-urinary: Deferred by me
Musculoskeletal: No Clubbing, No Cyanosis and No Edema
Skin: Warm, Dry and IV Access / Catheter Site
Neuro: Awake, Alert and Oriented
Hematologic / Lymphatic: No Lymphadenopathy
Psych: Calm
--- NOTE | 2025-02-13 07:41 | W.PN.CARDCBS ---
Addendum entered and electronically signed by Ismael Ontiveros MD 02/13/25 10:19:
I saw and examined the patient.
The TOMBSTONE CARVER or PA's note was reviewed and I agree with the note.
Comment: General: Well developed, well nourished in NAD.
Neck: Supple, no JVD, HJR, carotids +2 B/L, no bruits bilaterally.
Heart: Non displaced PMI, RRR, no murmurs, No S3, S4, no rubs.
Lungs: Clear to auscultation bilaterally, no wheeze, rhonchi, rubs bilaterally,
normal expiratory phase.
Extremities: No clubbing, cyanosis or edema bilaterally.
Neuro: Grossly nonfocal, awake, alert and oriented x3.
stable cardiology status for d/c. change lopressor to toprol. f/u arranged
Original Note:
Today's Communication / Plan
-
Changed Lopressor to Toprol XL, e-scribed by me
Will not add CARISSA/ARB/SGLT2 as stated
D/C to home today with cardiology f/u arranged
Impression / Plan
-
PCP: None
Card: None prior to admission
Impression:
Admitted with chest pain, SHARMA, N/V/D 02/11/25
Elevated Troponin
Takotsubo CM
No CAD by cath 02/11/25
History of Graves' disease status post thyroidectomy
Thyroid eye disease on prednisone
Leukocytosis on steroids
Echo 02/12/25: EF 40-45%, mild mid inferoseptal and apical septal hypokinesis, grade 1 diastolic dysfunction, trace mitral regurgitation, no pericardial effusion
Plan:
-Tele reviewed by me and remains in SR 02/13/25.
-Patient managed as Takotsubo CM. Troponin peaked at 1.75, will manage as a nonischemic myocardial injury Troponin
-Normal coronary arteries by cath 02/12/25.
-EF 40-45% by echo with mild mid inferoseptal and apical septal hypokinesis.
-Will change Lopressor to Toprol XL 25 mg daily, orders changed by me 02/13/25
-Hypotension precludes addition of CARISSA/ARB/ARNI/aldosterone antagonist
-Will not add SGLT2 inhibitor due to lack of CHF.
-LDL 115, no CAD on cath. Will not add statin.
-Reviewed Takotsubo CM pathophysiology and expected course and provided [employer] handouts for patient education on stress cardiomyopathy as a resource.
-Patient can be d/c'd to home 02/13/25 and cardiology f/u being arranged
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
Subjective
Date of Service: February 13, 2025
Feels well, no chest pain
Objective
Labs:
02/13/25 04:40
02/13/25 04:40
Labs
Hgb 13.2 g/dL (12.0-16.0) 02/13/25 04:40
Hct 40.4 % (37.0-47.0) 02/13/25 04:40
Plt Count 355 10^3/uL (130-400) 02/13/25 04:40
APTT Cancelled 02/11/25 23:30
Sodium 140 mmol/L (135-145) 02/13/25 04:40
Potassium 4.4 mmol/L (3.5-5.1) 02/13/25 04:40
BUN 21 mg/dl (7-17) H 02/13/25 04:40
Creatinine 0.7 mg/dL (0.6-1.0) 02/13/25 04:40
Glucose 108 mg/dl (70-99) H 02/13/25 04:40
Troponins
02/11/25 02/11/25 02/11/25
13:41 15:54 18:32
Troponin I 0.109 H* 1.230 H* D 1.750 H* D
02/12/25
01:17
Troponin I 1.190 H* D
Vital Signs and I&O:
Vital Signs
Temp Pulse Resp BP Pulse Ox
98 F 80 20 104/65 96
02/13/25 07:00 02/13/25 05:45 02/13/25 07:00 02/13/25 04:34 02/13/25 07:00
Vital Signs
Temp Pulse Resp BP Pulse Ox
98 F 80 20 104/65 96
02/13/25 07:00 02/13/25 05:45 02/13/25 07:00 02/13/25 04:34 02/13/25 07:00
Intake & Output
02/11/25 02/12/25 02/13/25 02/14/25
06:59 06:59 06:59 06:59
Intake Total 500 / 500 1680 / 1680
Balance 500 / 500 1680 / 1680
Physical Exam
Physical Exam
GEN: NAD, AAOx3
HEENT: mmm
LUNGS: RA. No wheeze
CV: SR on tele.
EXT: No edema B/L
NEURO: Gross non-focal
SKIN: No rash
[2025-02-13] MEDS: PROTONIX 40 MG PO (08:34)
[2025-02-13] MEDS: DELTASONE 30 MG PO (08:34)
[2025-02-13] MEDS: COLACE 100 MG PO (08:40)
[2025-02-13] MEDS: LOPRESSOR PO (09:19)
[2025-02-13] MEDS: TOPROL XL 12.5 MG PO (10:54)
--- NOTE | 2025-02-13 17:30 | W.DCSUMMARY ---
Addendum entered and electronically signed by Jerel Pedroza MD 02/13/25 22:51:
Read, reviewed, and agree. See same day progress note for additional details.
Francisco Pedroza MD
Original Note:
Documented by User: Darin Unger MD, Resident 02/13/25 18:14
Discharge Summary
Discharge Data
Date of Admission: 02/11/25
Date of Discharge: 02/13/25
Total time spent discharging patient (in min): >30m
-
Pending Results: No
Hospital Course
Discharging Physician : Dr. Darin Unger, Dr. Jerel Pedroza
Disposition : Home
Primary care physician : Unknown
Principal Discharge diagnosis : Stress Induced Cardiomyopathy
Chronic Discharge diagnosis : Grave's Disease, Thyroid Eye Disease
Hospital Course :
Barbara presented to the [facility] for complaints of acute diarrhea, severe headache, burning sensation which settled in the chest as a pressure like pain. On arrival she was given morphine which improved the pain. She was also given nitro which did
not help and made her feel worse. ECG showed nonspecific ST changes, without ST segment elevation. Lab work revealed elevated troponins. She was presumed NSTEMI, heparinized and given IV Lopressor. She continued to have chest pain which led to
cardiac catheterization where she had findings suggestive of Stress Induced Cardiomyopathy with normal coronary arteries. She was continued on BB, she was given one dose IV lasix, and heparin was stopped. An echocardiogram was done which showed EF
of 40-45% (full report below). She had an incident of symptomatic hypotension after being given Metoprolol tartrate and, given her low EF, she was changed to Metoprolol succinate and the dose was decreased. Throughout the admission she had
Leukocytosis without fever or other signs/sources of infection which was due to her steroid taper started as OP prior to admission for Thyroid Eye Disease. Lipid Panel was done inpatient which demonstrated elevated LDL, Total cholesterol and
Triglycerides. TSH was shown to be 0.17, which was lower than 0.2 from outpatient labs done 2-3 weeks ago. Ultimately, she was scheduled with follow up with Cardiology. 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
adjustment and management of her Grave's Disease and iatrogenic hypothyroidism. She was also started on Atorvastatin 40mg for primary prevention of CVD risk.
Important imaging findings :
CT Head W/o Iv Contrast:
No acute intracranial abnormality noted.
CT Chest/abd/pelvis Angio W/wo:
1. No aortic aneurysm or dissection.
2. No other significant abnormality identified in the chest, abdomen or pelvis as described above.
Echocardiogram:
CONCLUSIONS
Technically difficult study done with IV echo contrast
Normal left ventricular size with mildly reduced left ventricular systolic
function.
LV ejection fraction estimated by Lyle's biplane method 40-45%
Mild mid inferoseptal and apical septal hypokinesis
Grade 1 diastolic dysfunction
Trace mitral regurgitation
Trileaflet aortic valve with trace aortic regurgitation
Unable to estimate right heart pressures due to insufficient tricuspid
regurgitation jet
No pericardial effusion
No prior study available for comparison
Important procedure findings :
1. left heart catheterization
2. coronary angiography
CONCLUSIONS
1. normal coronary arteries in a right dominant system
2. ventriculography with apical hypokinesis and preserved basal function in a pattern consistent with a stress cardiomyopathy
2. elevated LV filling pressure and no aortic stenosis
Discharge Plan
-
Patient Disposition: Home (Routine Discharge)
Discharge Diagnosis/Procedures: Takotsubo cardiomyopathy also called stress cardiomyopathy
Diet: Low Fat
Driving Restrictions: As prior to admission
Bathing Restrictions: OK to Shower
Stand Alone Forms: DC Instructions- Cath/EP Lab, Return to Work
Referrals:
Ismael Ontiveros MD [Active] - 03/01/25 2:20 pm (You have an appointment to see Dr. Ontiveros's nurse practitioner, Aydee, at the [place] office on 03/01/2025 at 2:20 PM. Please call [phone] if you need to reschedule.)
UNKNOWN - PT DOES,NOT KNOW [Family Provider] -
Prescriptions:
New
metoprolol succinate [Toprol XL] 25 mg tablet extended release 24 hr
12.5 mg PO DAILY Qty: 30 11RF
atorvastatin 40 mg tablet
40 mg PO DAILY Qty: 30 2RF
Continued
prednisone 10 mg Tablet
10 mg PO DIRECTED
Patient Comments:
02/11/25: patient took only one 10mg tablet today
Rx Instructions:
beginning 02/06/25: take 5 tabs per day for 3 days, then 4 tabs per day for 4 days, then decrease 1 tab every 4 days until done
therapeutic multivitamin Tablet
1 tab PO DAILY
levothyroxine 112 mcg Tablet
112 mcg PO DAILY
Discharge Orders:
Discharge Patient (As Directed); Ordered 02/13/25
Ordered By: Darin Unger
Care Plan Goals
Care Plan Goals:
Problem: Readiness for enhanced knowledge related to diagnosis and treatment plan
Goal: Understand your diagnosis and treatment plan needs, including medications if applicable.
Instructions: Know your diagnosis, underlying causes and treatment plan options, including medications if applicable. Consult with your health care team to learn about your diagnosis and treatment plan, including medications if applicable.
Discharge Date and Time
Discharge Date/Time: 02/13/25 15:56
Print Language: VENEZUELAN

Documented by User: Jerel Pedroza MD 02/13/25 22:47
Discharge Summary
Discharge Data
Date of Admission: 02/11/25
Date of Discharge: 02/13/25
Discharge Plan
-
Patient Disposition: Home (Routine Discharge)
Discharge Diagnosis/Procedures: Takotsubo cardiomyopathy also called stress cardiomyopathy
Diet: Low Fat
Driving Restrictions: As prior to admission
Bathing Restrictions: OK to Shower
Stand Alone Forms: DC Instructions- Cath/EP Lab, Return to Work
Referrals:
Ismael Ontiveros MD [Active] - 03/01/25 2:20 pm (You have an appointment to see Dr. Ontiveros's nurse practitioner, Aydee, at the [place] office on 03/01/2025 at 2:20 PM. Please call [phone] if you need to reschedule.)
UNKNOWN - PT DOES,NOT KNOW [Family Provider] -
Prescriptions:
New
metoprolol succinate [Toprol XL] 25 mg tablet extended release 24 hr
12.5 mg PO DAILY Qty: 30 11RF
atorvastatin 40 mg tablet
40 mg PO DAILY Qty: 30 2RF
Continued
prednisone 10 mg Tablet
10 mg PO DIRECTED
Patient Comments:
02/11/25: patient took only one 10mg tablet today
Rx Instructions:
beginning 02/06/25: take 5 tabs per day for 3 days, then 4 tabs per day for 4 days, then decrease 1 tab every 4 days until done
therapeutic multivitamin Tablet
1 tab PO DAILY
levothyroxine 112 mcg Tablet
112 mcg PO DAILY
Discharge Orders:
Discharge Patient (As Directed); Ordered 02/13/25
Ordered By: Darin Unger
Care Plan Goals
Care Plan Goals:
Problem: Readiness for enhanced knowledge related to diagnosis and treatment plan
Goal: Understand your diagnosis and treatment plan needs, including medications if applicable.
Instructions: Know your diagnosis, underlying causes and treatment plan options, including medications if applicable. Consult with your health care team to learn about your diagnosis and treatment plan, including medications if applicable.
Discharge Date and Time
Discharge Date/Time: 02/13/25 15:56
Print Language: VENEZUELAN
== END 2025-02-13 15:56 | disposition home or self-care (01) | DRG 287 ==
LOC: IVU 18:05
PROVIDERS: Emergency Medicine; Physician Assistant; Urology; ADMITTING PHYSICIAN Internal Medicine; ATTENDING PHYSICIAN Family Medicine; CONSULT PHYSICIAN Internal Medicine Cardiovascular Disease; EMERGENCY PHYSICIAN Emergency Medicine
PROC: B2111ZZ Fluoroscopy of Multiple Coronary Arteries using Low Osmolar Contrast (ICD-10-PCS; 2025-02-11)
PROC: B2151ZZ Fluoroscopy of Left Heart using Low Osmolar Contrast (ICD-10-PCS; 2025-02-11)
PROC: 4A023N7 Measurement of Cardiac Sampling and Pressure, Left Heart, Percutaneous Approach (ICD-10-PCS; 2025-02-11)
DX: I51.81 Takotsubo syndrome (principal); I5A Non-ischemic myocardial injury (non-traumatic); E78.5 Hyperlipidemia, unspecified; E05.00 Thyrotoxicosis with diffuse goiter without thyrotoxic crisis or storm; E03.2 Hypothyroidism due to medicaments and other exogenous substances; Z79.899 Other long term (current) drug therapy; Z82.49 Family history of ischemic heart disease and other diseases of the circulatory system
CPT/HCPCS: 70450; 71275; 74174; 80048; 80053; 80061; 84443; 84484; 85025; 85027; 85730; 93005; 93306; 93458; 96374; 96375; 99152; 99153; 99291; C1894; Q9950; Q9967

== ENCOUNTER → 2025-04-20 10:56 | Outpatient (REF) | payer BC, SELFPAY | LOC: DHSLP 10:56 | PROVIDERS: ATTENDING PHYSICIAN Nurse Practitioner; FAMILY PHYSICIAN Family Medicine | DX: G47.33 Obstructive sleep apnea (adult) (pediatric) (principal) | CPT/HCPCS: 95800 ==

== ENCOUNTER → 2025-05-30 14:59 | Outpatient (REF) | payer BC, SELFPAY | LOC: HWRCS 14:59 | PROVIDERS: ATTENDING PHYSICIAN Nurse Practitioner; FAMILY PHYSICIAN Family Medicine | DX: I51.81 Takotsubo syndrome (principal) | CPT/HCPCS: 93306 ==

== ENCOUNTER → 2025-08-03 10:17 | Outpatient (REF) | payer BC, SELFPAY | LOC: HWRAD 10:17 | PROVIDERS: ATTENDING PHYSICIAN Nurse Practitioner Adult Health; FAMILY PHYSICIAN Family Medicine | DX: R06.02 Shortness of breath (principal) | CPT/HCPCS: 71046 ==